=== PATIENT | male | born 1955 | race Caucasian/White ===

== ENCOUNTER 2016-09-05 15:58 | Emergency (ER) | payer BC, OTHER ==
[2016-09-05 16:22] VITALS: BP 147/82
--- NOTE | 2016-09-05 17:35 | RAD ---
HISTORY: Fall, back pain COMPARISONS: July 31, 2011 VIEWS: 5 , Frontal, lateral, coned-down lateral sacral, and bilateral oblique views of the lumbar spine. FINDINGS: ALIGNMENT: The alignment is normal. VERTEBRAL BODIES: There is osteopenia. There is mild loss of vertebral body height at T12. There is no appreciable osseous retropulsion. There is a step-off of the sacral-coccygeal junction JOINTS: There is diffuse facet hypertrophy change, most pronounced at L4-L5 and L5-S1 INTERVERTEBRAL DISCS: There is diffuse loss of intervertebral disc height. SOFT TISSUE: Unremarkable. OTHER: The pelvis is unremarkable. The lung bases are clear. IMPRESSION: 1. OSTEOPENIA. 2. MILD LOSS OF VERTEBRAL BODY HEIGHT AT T12 WHICH MAY REPRESENT AN AGE-INDETERMINATE COMPRESSION FRACTURE. THERE IS NO OSSEOUS RETROPULSION. 3. STEP-OFF AT THE SACROCOCCYGEAL JUNCTION SUGGESTIVE OF A MINIMALLY DISPLACED FRACTURE GIVEN HISTORY OF TRAUMA. 4. DEGENERATIVE DISC DISEASE AND OSTEOARTHRITIS
--- NOTE | 2016-09-05 17:37 | UC ---
Back Pain HPI - HPI Summary HPI Summary: patient slipped going down the stairs, landed on his tailbone and felt a pull in the lower left back and upper right back. happened about 3 hours ago - History of Current Complaint Chief Complaint: UCBackPain Stated Complaint: BACK,TAILBONE FROM FALL W/C Time Seen by Provider: 09/05/16 16:17 Hx Obtained From: Patient Onset/Duration: Sudden Onset, Lasting Hours Timing: Constant Severity Initially: Moderate Severity Currently: Moderate Back Pain: Is Discrete @ Character: Throbbing, Spasmodic Aggravating: Movement Alleviating: Rest Associated Signs And Symptoms: Positive: Negative - Allergies/Home Medications Allergies/Adverse Reactions: Allergies Allergy/AdvReac Type Severity Reaction Status Date / Time environmental Allergy Congestion Uncoded 09/05/16 16:21 Home Medications: Home Medications Tumeric DAILY 09/05/16 [History] PMH/Surg Hx/FS Hx/Imm Hx Previously Healthy: Yes Endocrine History Of: Denies: Diabetes Cardiovascular History Of: Reports: Hypertension Respiratory History Of: Denies: Asthma - Surgical History Surgical History: Yes Surgery Procedure, Year, and Place: abd. hernia - Family History Known Family History: Positive: Hypertension - father, Diabetes - mother and father - Social History Alcohol Use: Occasionally Substance Use Type: None Smoking Status (MU): Never Smoked Tobacco Review of Systems Constitutional: Negative Skin: Negative Eyes: Negative ENT: Negative Respiratory: Negative Cardiovascular: Negative Gastrointestinal: Negative Genitourinary: Negative Motor: Negative Neurovascular: Negative Musculoskeletal: Arthralgia, Decreased ROM, Myalgia Neurological: Negative Psychological: Negative All Other Systems Reviewed And Are Negative: Yes Physical Exam Triage Information Reviewed: Yes Appearance: Well-Appearing, Well-Nourished, Pain Distress Vital Signs: Initial Vital Signs Temp 99.5 F 09/05/16 16:17 Pulse 72 09/05/16 16:17 Resp 18 09/05/16 16:17 BP 147/82 09/05/16 16:17 Pulse Ox 96 09/05/16 16:17 Vital Signs Reviewed: Yes Eye Exam: Normal Eyes: Positive: Conjunctiva Clear ENT Exam: Normal Dental Exam: Normal Neck exam: Normal Neck: Positive: Supple, Nontender, No Lymphadenopathy Respiratory Exam: Normal Respiratory: Positive: Chest non-tender, Lungs clear, Normal breath sounds Cardiovascular Exam: Normal Cardiovascular: Positive: RRR, No Murmur, Pulses Normal Abdominal Exam: Normal Abdomen Description: Positive: Nontender, No Organomegaly, Soft Bowel Sounds: Positive: Present Musculoskeletal Exam: Normal Musculoskeletal: Positive: Strength Intact, ROM Intact - painful with twisting, No Edema Neurological Exam: Normal Neurological: Positive: Alert, Muscle Tone Normal Psychological Exam: Normal Skin Exam: Normal Back Pain Course/Dx - Course Course Of Treatment: hx obtained, exam performed, meds reviewed, xray obtained to R/O bony injury. denied need for pain meds or muscle relaxors. no treatment given. recommendations for stretching and treatment given. compression fracture , old, and possible coccyx fracture noted. - Differential Dx/Diagnosis Differential Diagnosis/HQI/PQRI: Arthritis, Herniated Disc, Strain, Sprain Provider Diagnoses: low back strain. coccyx fracture. compression fracture of t12 Discharge - Discharge Plan Condition: Stable Disposition: HOME Patient Education Materials: Low Back Strain (ED), Core Strengthening Exercises (ED), Sacral Fracture (ED), Vertebral Compression Fracture (ED) Referrals: Shade Leach DO [Primary Care Provider] - Additional Instructions: 1. mild stretching and keep moving in pain free reange 2. warm compresses and soaks to relieve tightness 3. follow up with any worsening symptoms
== END 2016-09-05 18:04 | disposition home or self-care (01) ==
LOC: UCCORT 15:58
DX: S39.012A Strain of muscle, fascia and tendon of lower back, initial encounter (principal); S22.080A Wedge compression fracture of T11-T12 vertebra, initial encounter for closed fracture; S32.2XXA Fracture of coccyx, initial encounter for closed fracture; W10.9XXA Fall (on) (from) unspecified stairs and steps, initial encounter; Y93.9 Activity, unspecified; Y92.89 Other specified places as the place of occurrence of the external cause; Y99.0 Civilian activity done for income or pay; M85.88 Other specified disorders of bone density and structure, other site; M51.37 Other intervertebral disc degeneration, lumbosacral region; M47.817 Spondylosis without myelopathy or radiculopathy, lumbosacral region; I10 Essential (primary) hypertension
CPT/HCPCS: 72110; 99211; G0463

== ENCOUNTER 2017-04-28 17:22 | Emergency (ER) | payer BC, OTHER ==
[2017-04-28 18:39] VITALS: BP 156/91
--- NOTE | 2017-04-28 18:41 | UC ---
Respiratory Complaint HPI - HPI Summary HPI Summary: nasal and head congestion worsening the past 2 days, has been using Afrin Daily for 2-3 months. - History of Current Complaint Chief Complaint: UCGeneralIllness Stated Complaint: COUGH Time Seen by Provider: 04/28/17 18:38 Hx Obtained From: Patient Onset/Duration: Gradual Onset, Lasting Weeks, Worse Since - past 2 days Timing: Constant Severity Initially: Mild Severity Currently: Moderate Character: Cough: Nonproductive Aggravating Factors: Nothing Alleviating Factors: Other - afrin nasal spray Associated Signs And Symptoms: Positive: URI, Nasal Congestion - Allergies/Home Medications Allergies/Adverse Reactions: Allergies Allergy/AdvReac Type Severity Reaction Status Date / Time environmental Allergy Congestion Uncoded 04/28/17 18:39 Home Medications: Home Medications Dextromethorphan-Phenylephrine [Daytime Multi Symptom Col] 2 cap PO DAILY PRN [History Confirmed 04/28/17] Ibuprofen [Ibuprofen 200] 400 mg PO Q6H PRN 04/28/17 [History Confirmed 04/28/17 ] [id number] W/ APAP [Delsym Cough + Cold D... 9-02-088-325 mg/10Ml] 1 liq PO DAILY PRN 04/28/17 [History Confirmed 04/28/17] PMH/Surg Hx/FS Hx/Imm Hx Previously Healthy: No Endocrine History: Dyslipidemia - Surgical History Surgical History: Yes Surgery Procedure, Year, and Place: abd. hernia - Family History Known Family History: Positive: Hypertension - father, Diabetes - mother and father - Social History Occupation: Employed Part-time Lives: With Family Alcohol Use: Occasionally Substance Use Type: None Smoking Status (MU): Never Smoked Tobacco Review of Systems Constitutional: Negative Skin: Negative Eyes: Negative ENT: Ear Ache, Sinus Congestion Respiratory: Negative Cardiovascular: Negative Gastrointestinal: Negative Genitourinary: Negative Motor: Negative Neurovascular: Negative Musculoskeletal: Negative Neurological: Negative Psychological: Negative Is Patient Immunocompromised?: No All Other Systems Reviewed And Are Negative: Yes Physical Exam Triage Information Reviewed: Yes Appearance: Well-Appearing, No Pain Distress, Well-Nourished Vital Signs: Initial Vital Signs Temp 98.9 F 04/28/17 18:34 Pulse 75 04/28/17 18:34 Resp 20 04/28/17 18:34 BP 156/91 04/28/17 18:34 Pulse Ox 99 12/23/17 18:34 Vital Signs Reviewed: Yes Eye Exam: Normal Eyes: Positive: Conjunctiva Clear ENT Exam: Normal ENT: Positive: Normal ENT inspection, Hearing grossly normal, Pharynx normal, Nasal congestion, TMs normal, Uvula midline. Negative: Tonsillar swelling, Tonsillar exudate, Trismus, Muffled voice, Hoarse voice, Dental tenderness, Sinus tenderness Dental Exam: Normal Neck exam: Normal Neck: Positive: Supple, Nontender, No Lymphadenopathy Respiratory Exam: Normal Respiratory: Positive: Chest non-tender, Lungs clear, Normal breath sounds, No respiratory distress, No accessory muscle use Cardiovascular Exam: Normal Cardiovascular: Positive: RRR, No Murmur, Pulses Normal, Brisk Capillary Refill Musculoskeletal Exam: Normal Musculoskeletal: Positive: Strength Intact, ROM Intact, No Edema Neurological Exam: Normal Neurological: Positive: Alert, Muscle Tone Normal Psychological Exam: Normal Skin Exam: Normal UC Diagnostic Evaluation - Laboratory O2 Sat by Pulse Oximetry: 99 Respiratory Course/Dx - Course Course Of Treatment: Stop Afrin, Use nasal spaline every 1-2 hours try mucinex d , follow with pcp - Differential Dx/Diagnosis Provider Diagnoses: nasal congestion, Afrin Misuse, Elevated Blood Pressure With Diagnosis of hypertension Discharge - Discharge Plan Condition: Stable Disposition: HOME Patient Education Materials: Decongestant/Expectorant (By mouth), Sodium Chloride (Into the nose), How to Use Nasal [place] (ED) Referrals: Huma Nguyen PA [Primary Care Provider] - 1 Week
== END 2017-04-28 19:12 | disposition home or self-care (01) ==
LOC: UCCORT 17:22
DX: R09.81 Nasal congestion (principal); T48.5X1A Poisoning by other anti-common-cold drugs, accidental (unintentional), initial encounter; Y92.9 Unspecified place or not applicable; R03.0 Elevated blood-pressure reading, without diagnosis of hypertension; Z72.89 Other problems related to lifestyle
CPT/HCPCS: 99211; G0463

== ENCOUNTER 2018-05-12 08:44 | Emergency (ER) | payer BC, OTHER ==
[2018-05-12 08:57] VITALS: BP 147/86
--- NOTE | 2018-05-12 09:06 | UC ---
UC General HPI - HPI Summary HPI Summary: 5 DAY HX SINUS DISCOMFORT, CONGESTION AND A SINUS HEADACHE. NEW COUGH AND GREEN MUCOUS. NO FEVER OR BLOODY DRAINAGE. SELF TX WITH NASAL SALINE FLUSHES AND DECONGESTANT. HX SINUS INFECTIONS. - History of Current Complaint Chief Complaint: UCGeneralIllness Stated Complaint: SINUS CONCERN Time Seen by Provider: 05/12/18 08:57 Hx Obtained From: Patient Onset/Duration: Gradual Onset Timing: Constant Pain Intensity: 0 Associated Signs & Symptoms: Negative: Fever - Allergy/Home Medications Allergies/Adverse Reactions: Allergies Allergy/AdvReac Type Severity Reaction Status Date / Time environmental Allergy Congestion Uncoded 05/12/18 08:54 Home Medications: Home Medications Magnesium [Magnesium Elemental] 30 mg PO DAILY 05/12/18 [History Confirmed 05/12] Pseudoephedrine HCL ER TAB* [Sudafed 12 Hour*] 120 mg PO BID 05/12/18 [History Confirmed 05/12/18] PMH/Surg Hx/FS Hx/Imm Hx - Additional Past Medical History Additional PMH: SINUSITIS, REZA Cardiovascular History: Hypertension - Surgical History Surgical History: Yes Surgery Procedure, Year, and Place: abd. hernia - Family History Known Family History: Positive: Hypertension - father, Diabetes - mother and father - Social History Alcohol Use: Occasionally Substance Use Type: None Smoking Status (MU): Never Smoked Tobacco - Immunization History Vaccination Up to Date: Yes Review of Systems All Other Systems Reviewed And Are Negative: Yes Constitutional: Positive: Chills. Negative: Fever Skin: Positive: Negative Eyes: Positive: Negative ENT: Positive: Nasal Discharge, Sinus Congestion, Sinus Pain/Tenderness Respiratory: Positive: Cough Cardiovascular: Positive: Negative Gastrointestinal: Positive: Negative Genitourinary: Positive: Negative Motor: Positive: Negative Neurovascular: Positive: Negative Musculoskeletal: Positive: Negative Neurological: Positive: Headache Psychological: Positive: Negative Is Patient Immunocompromised?: No Physical Exam Triage Information Reviewed: Yes Appearance: Well-Appearing Vital Signs: Initial Vital Signs Temp 98.1 F 05/12/18 08:54 Pulse 79 05/12/18 08:54 Resp 18 05/12/18 08:54 BP 147/86 05/12/18 08:54 Pulse Ox 96 05/12/18 08:54 Vital Signs Reviewed: Yes Eyes: Positive: Conjunctiva Clear ENT: Positive: Pharynx normal, Nasal congestion, TMs normal, Sinus tenderness. Negative: Nasal drainage Neck: Positive: Supple, Nontender, No Lymphadenopathy Respiratory: Positive: Lungs clear, Normal breath sounds Cardiovascular: Positive: RRR, No Murmur Abdomen Description: Positive: Nontender, No Organomegaly, Soft Musculoskeletal: Positive: ROM Intact Neurological: Positive: Alert Psychological: Positive: Age Appropriate Behavior Skin Exam: Normal Course/Dx - Course Course Of Treatment: NO FEVER, NON TOXIC AND DRAINAGE IS NOT BLOODY THUS WILL CONTINUE OTC TX. IF NOT BETTER IN 48 HOURS OR IF WORSE, PT TO ADD ANTIBIOTIC. - Differential Dx - Multi-Symptom Differential Diagnoses: Other - VIRAL URI, BACTERIAL SINUSITIS - Diagnoses Provider Diagnosis: Sinusitis Discharge - Sign-Out/Discharge Documenting (check all that apply): Patient Departure All imaging exams completed and their final reports reviewed: No Studies - Discharge Plan Condition: Stable Disposition: HOME Prescriptions: Amoxicillin/Clavulanate TAB* [Augmentin TAB 875*] 875 mg PO BID 10 Days #20 tab Patient Education Materials: Sinusitis (ED) Referrals: Huma Nguyen PA [Primary Care Provider] - Additional Instructions: CONTINUE THE NASAL FLUSHING. IF NOT IMPROVING IN 48 HOURS START THE ANTIBIOTIC. START THE ANTIBIOTIC SOONER FOR WORSENING SINUS COMPLAINT. - Billing Disposition and Condition Condition: STABLE Disposition: Home - Attestation Statements Provider Attestation: I was available for consult. This patient was seen by the PORFIRIO. The patient was not presented to , seen by or examined by ak -Howard Golden MD
== END 2018-05-12 09:13 | disposition home or self-care (01) ==
LOC: UCCORT 08:44
DX: J32.9 Chronic sinusitis, unspecified (principal)
CPT/HCPCS: 99212; G0463

== ENCOUNTER 2019-03-06 17:20 | Emergency (ER) | payer BC ==
--- OUTSIDE RECORDS SUMMARY | 2019-03-06 17:28 | XMS REPORT | Continuity of Care Document ---
:1955 External Reference #:[id number] Author Name Huma Nguyen PA Address [address] [place] [id number] Problems Active Problems Provider Date Pure hyperglyceridemia Shade Leach DO Onset: 10/12/2005 Sleep apnea Shade Leach DO Onset: 10/12/2005 Benign essential hypertension Racheal Lopez PA Onset: 08/15/2004 Social History Type Date Description Comments Sex Unknown ETOH Use Occasionally consumes alcohol Tobacco Use Start: Unknown Patient has never smoked Allergies, Adverse Reactions, Alerts Description No Known Drug Allergies Medications Active Medications SIG Qnty Indications Ordering Provider Date Doxycycline Hyclate 1 tablet by 20caps J01.90 Dioni Tristan DO 2018 mouth twice a 100mg Capsules day x 10 days Montelukast Sodium 1 by mouth every 90tabs Dioni Tristan DO 01/23/2019 10mg day Tablets Nifedipine ER 1 by mouth every 90tabs I10 Dioni Tristan DO 06/03/2018 60mg day Tablets ER 24HR Glucosamine every day Dioni Tristan DO 02/08/2018 Chondroitin 1500 Complex 1500Com Capsules Calcium Carbonate 1 PO qd Unknown 1500mg Tablets Multi-Vitamin Daily 1 by mouth every Unknown day Tablets Magnesium Oxide -MG 1 by mouth every Unknown Supplement day 250mg Tablets Immunizations CPT Code Status Date Vaccine Lot # [id number] Given 08/21/2013 Hepatitis B Vac Adolescent 2 Dose Schedule 19866 Given 05/22/2013 Hepatitis B Vac Adolescent 2 Dose Schedule 08372 Given 03/20/2013 Hepatitis B Vac Adolescent 2 Dose Schedule 58314 Given 10/24/2010 Tdap (Adacel) Ages 7 And Above Only [id number] Refused 02/08/2018 Flu Vaccine NOS Vital Signs Date Vital Result Comment 01/23/2019 3:28pm Body Temperature 98.3 F Weight 248.00 lb Heart Rate 68 /min BP Systolic 140 mmHg BP Diastolic 72 mmHg Respiratory Rate 18 /min Height 71 inches 5'11" O2 % BldC Oximetry 95 % BMI (Body Mass Index) 34.6 kg/m2 08/15/2018 3:21pm Body Temperature 98.8 F Weight 252.00 lb Heart Rate 80 /min BP Systolic 138 mmHg BP Diastolic 82 mmHg Respiratory Rate 18 /min Height 71 inches 5'11" BMI (Body Mass Index) 35.1 kg/m2 Results Test Date Facility Test Result H/L Range Note Lipid 08/08/2018 [facility] Cholesterol 223 mg/dL High 50-199 Triglycerides 150 mg/dL 30-200 HDL 35 mg/dL 29-71 1 Chol/ HDL Ratio 6.3 ratio 4.0-6.7 VLDL 30 mg/dL High 2-29 LDL (Calc) 158 mg/dL High 20-99 2 Comprehensive Met Panel-[facility] 08/08/2018 [facility] Sodium 138 mmol/L 135- 146 3 Potassium 4.3 mmol/L 3.5-5.2 Chloride# 105 mmol/L 97-110 4 Carbon Dioxide 25 mmol/L 24-34 Glucose 102 mg/dL 70-105 BUN 14 mg/dL 6-26 Creatinine 1.0 mg/dL 0.5-1.4 Calcium 9.3 mg/dL 8.5-10.2 Total Protein 7.2 g/dL 6.0-8.0 Albumin 4.3 g/dL 3.6-4.9 Globulin 2.9 g/dL 2.0-3.5 A/G Ratio 1.5 Ratio 1.0-2.2 Total Bilirubin 0.4 mg/dL 0.1-1.3 Alkaline Phosphatase 83 U/L 24-140 Alt 18 U/L 3-42 Ast 19 U/L 8-42 Anion Gap 8 mmol/L 5-15 5 Gina Egfr >60 >60 6 Non Gina Egfr >60 >60 7 CBC with Auto Diff-fcmg 08/08/2018 [facility] WBC 6.0 K/uL 4.1-11.0 RBC 5.26 M/uL 4.60-6.10 Hemoglobin 15.8 gm/dL 13.5-18.0 Hematocrit 47.4 % 41.0-53.0 MCV 90.1 fL 80.0-97.0 MCH 30.1 pg 27.0-32.0 MCHC 33.4 g/dL 32.0-36.0 RDW 13.7 % 11.5-14.5 PLT Count 264 K/ul 140-400 MPV 9.0 FL 7.1-10.7 Neutrophil 57.9 % 35.0-75.0 Lymphocyte 28.7 % 16.0-52.0 Monocyte 10.0 % 2.0-10.0 Eosinophil 2.9 % 0.0-5.0 Basophil 0.5 % 0.0-4.0 Abs Neutrophils 3.5 K/uL 2.1-8.0 Abs Lymphocytes 1.7 K/uL 0.8-5.5 Abs Monocytes 0.6 K/uL 0.1-1.0 Abs Eosinophils 0.2 K/uL 0.0-0.5 Abs Basophils 0.0 K/uL 0.0-0.3 Laboratory test 08/08/2018 [facility] PSA 0.760 ng/mL 0.000-4.000 8 finding Celiac Disease Panel 08/08/2018 [facility] Celikey (tTG) IgA Negative Negative Celikey (tTG) IgG Negative Negative deamidated Gliadin IgA Negative Negative deamidated Gliadin IgG Negative Negative 1 Per NCEP ATP III Guidelines: Results lower than 40 mg/dL are suggestive of increased risk for coronary artery disease. Results > or = to 60 mg/dL are considered a negative risk factor. 2 Per NCEP ATP III Guidelines: Normal Population <130 Patients with medical conditions: CHD/DM Optimal: <100 Borderline high: 130-159 High: 160-189 Very high: >189 3 Updated reference range on new analyzer 4 Updated reference range on new analyzer 5 Updated Reference Range 6 Concerning GFR Guidelines for Americans: Normal function or mild renal disease, if clinically at risk: >/= 60 mL/min Moderately decreased: 30-59 Severely decreased: 15-29 Renal failure: <15 7 Concerning GFR Guidelines: Normal function or mild renal disease, if clinically at risk: >/= 60 mL/min Moderately decreased: 30-59 Severely decreased: 15-29 Renal failure: <15 Glomerular Filtration Rate (GFR) is estimated based on the MDRD equation, which assumes a steady state for creatinine as recommended by the National Kidney Disease Education Program in conjunction with the National Institutes of Health and the National Kidney Foundation. Clinical conditions in which it may be necessary to measure GFR by using clearance methods include extremes of age and body size, severe malnutrition or obesity, diseases of skeletal muscle, paraplegia or quadriplegia, vegetarian diet, rapidly changing kidney function, and calculation of the dose of potentially toxic drugs that are excreted by the kidneys. 8 Beginning 07/02/06 PSA values assayed at [facility] uses chemiluminescence methodology manufactured by [employer] for use on the DXI analyzer. Values obtained with different assay methods or kits can not be used interchangeably. Serum PSA measurement is not an absolute test for malignancy. The PSA value should be used in conjunction with information available from clinical evaluation and other diagnostic procedures. Procedures Date Code Description Status 12/28/2016 [id number] Colonoscopy Completed Medical Devices Description No Information Available Encounters Type Date Location Provider Dx Diagnosis Office Visit 08/15/2018 [facility] Huma Nguyen PA Z00.00 Encntr for general 3:30p adult medical exam w/o abnormal findings I10 Essential (primary) hypertension E78.2 Mixed hyperlipidemia Z68.35 Body mass index (BMI) 35.0-35.9, adult Assessments Date Code Description Provider 01/23/2019 J01.90 Acute sinusitis, unspecified Huma Nguyen PA 01/23/2019 Z68.34 Body mass index (BMI) 34.0-34.9, adult Huma Nguyen PA 08/15/2018 Z00.00 Encounter for general adult medical Huma Nguyen PA examination without abno 08/15/2018 I10 Essential (primary) hypertension Huma Nguyen PA 08/15/2018 E78.2 Mixed hyperlipidemia Huma Nguyen PA 08/15/2018 Z68.35 Body mass index (BMI) 35.0-35.9, adult Huma Nguyen PA 08/08/2018 E78.2 Mixed hyperlipidemia Dioni Tristan DO 08/08/2018 E78.2 Mixed hyperlipidemia Schedule, Laboratory 08/08/2018 Z12.5 Encounter for screening for malignant neoplasm Dioni Tristan DO of prostate 08/08/2018 Z12.5 Encounter for screening for malignant neoplasm Schedule, Laboratory of prostate 08/08/2018 R14.0 Abdominal distension (gaseous) Dioni Tristan DO 08/08/2018 R14.0 Abdominal distension (gaseous) Schedule, Laboratory 08/08/2018 E78.2 Mixed hyperlipidemia [facility] 08/08/2018 Z12.5 Encounter for screening for malignant neoplasm [facility] of prostate 08/08/2018 R14.0 [facility]dominal [facility] Plan of Treatment Future Appointment(s):02/24/2019 9:40 am - Schedule, Laboratory at [facility]2018 3:30 pm - Huma Nguyen PA at [facility]01/23/2019 - Huma Nguyen PAJ01.90 Acute sinusitis, unspecifiedNew Medication:Doxycycline Hyclate 100 mg - 1 tablet by mouth twice a day x 10 daysComments:Will treat with doxyContinue flonase, coricidinCall with worsening/persisting symptomsFollow up:PrnZ68.34 Body mass index (BMI) 34.0-34.9, adult Functional Status Description No Information Available Mental Status Description No Information Available Referrals Description No Information Available
--- OUTSIDE RECORDS SUMMARY | 2019-03-06 17:28 | XMS REPORT | Continuity of Care Document ---
:1955 External Reference #:[id number] Author Name Huma Nguyen PA Address [address] [place] [address] Problems Active Problems Provider Date Pure hyperglyceridemia [...] Medications SIG Qnty Indications Ordering Provider Date Albuterol Sulfate 2 puffs every 4-6 17gm R05 Dioni Tristan, 02/27/2019 HFA hours as needed DO 108(90Base) for cough, mcg/Act Aerosol wheezing, shortness of breath Montelukast Sodium 1 by mouth every 90tabs Dioni Tristan, 01/23/2019 day DO 10mg Tablets Nifedipine ER 1 by mouth every 90tabs I10 Dioni Tristan, 06/03/2018 60mg day DO Tablets ER 24HR Glucosamine every day Dioni Tristan, 02/08/2018 Chondroitin 1500 DO Complex 1500Com Capsules Calcium Carbonate 1 PO qd Unknown 1500mg Tablets Multi-Vitamin Daily 1 by mouth every Unknown day Tablets Magnesium Oxide -MG 1 by mouth every Unknown Supplement day 250mg Tablets History Medications Doxycycline Hyclate 1 tablet by 20caps J01.90 Dioni Tristan, 01/23/2019 - mouth twice a DO 02/02/2019 100mg Capsules day x 10 days Immunizations CPT Code Status Date Vaccine Lot # [id number] Given 08/21/2013 Hepatitis B Vac Adolescent 2 Dose Schedule 99016 Given 05/22/2013 Hepatitis B Vac Adolescent 2 Dose Schedule 04124 Given 03/20/2013 Hepatitis B Vac Adolescent 2 Dose Schedule 03842 Given 10/24/2010 Tdap (Adacel) Ages 7 And Above Only Q2039 Refused 02/08/2018 Flu Vaccine NOS Vital Signs Date Vital Result Comment 02/27/2019 3:31pm Weight 252.00 lb Heart Rate 70 /min BP Systolic 140 mmHg BP Diastolic 80 mmHg Respiratory Rate 18 /min Height 71 inches 5'11" BMI (Body Mass Index) 35.1 kg/m2 01/23/2019 3:28pm Body Temperature 98.3 F Weight 248.00 lb Heart Rate 68 /min BP Systolic 140 mmHg BP Diastolic 72 mmHg Respiratory Rate 18 /min Height 71 inches 5'11" O2 % BldC Oximetry 95 % BMI (Body Mass Index) 34.6 kg/m2 Results Test Date Facility Test Result H/L Range Note Lipid 02/24/2019 [facility] Cholesterol 192 mg/dL 50-199 Triglycerides 148 mg/dL 30-200 HDL 33 mg/dL 29-71 1 Chol/ HDL Ratio 5.8 ratio 4.0-6.7 VLDL 30 mg/dL High 2-29 LDL (Calc) 129 mg/dL High 20-99 2 Comprehensive Met Panel[facility] 02/24/2019 [facility] Sodium 137 mmol/L 135- 146 3 Potassium 4.5 mmol/L 3.5-5.2 Chloride# 104 mmol/L 97-110 4 Carbon Dioxide 25 mmol/L 24-34 Calcium 9.3 mg/dL 8.5-10.5 5 Glucose 93 mg/dL 70-105 BUN 13 mg/dL 6-26 Creatinine 1.0 mg/dL 0.5-1.4 Total Protein 6.9 g/dL 6.0-8.0 Albumin 4.3 g/dL 3.6-4.9 Globulin 2.6 g/dL 2.0-3.5 A/G Ratio 1.7 Ratio 1.0-2.2 Total Bilirubin 0.5 mg/dL 0.1-1.3 Alkaline Phosphatase 85 U/L 24-140 Alt 21 U/L 3-42 Ast 20 U/L 8-42 Anion Gap 8 mmol/L 5-15 6 Female Egfr 63 >60 7 Male Egfr 84 >60 8 1 Per NCEP ATP III Guidelines: Results [...] reference range on new analyzer 5 Updated reference range 09-04-2018 6 Updated Reference Range 7 Concerning GFR Guidelines for Americans: Normal function or mild renal disease, if clinically at risk: >/= 60 mL/min Moderately decreased: 30-59 Severely decreased: 15-29 Renal failure: <15 There is reduced accuracy above 60ml/min/1.73 m squared, but the numeric value may be clinically useful in the near 60 range 8 Concerning GFR Guidelines: Normal function or mild renal disease, if clinically at risk: >/= 60 mL/min Moderately decreased: 30-59 Severely decreased: 15-29 Renal failure: <15 There is reduced accuracy above 60ml/min/1.73 m squared, but the numeric value may be clinically useful in the near 60 range Glomerular Filtration Rate (GFR) is estimated based on the CKD-EPI equation, which assumes a steady state for [...] drugs that are excreted by the kidneys. Procedures Date Code Description Status 12/28/2016 [id number] Colonoscopy Completed Medical Devices Description No Information Available Encounters Type Date Location Provider Dx Diagnosis Office Visit 01/23/2019 [facility] Huma Nguyen PA J01.90 Acute sinusitis, 3:30p unspecified Z68.34 Body mass index (BMI) 34.0-34.9, adult Assessments Date Code Description Provider 02/27/2019 I10 Essential (primary) hypertension Huma Nguyen PA 02/27/2019 E78.2 Mixed hyperlipidemia Huma Nguyen PA 02/27/2019 R05 Cough Huma Nguyen PA 02/27/2019 Z12.5 Encounter for screening for malignant neoplasm Huma Nguyen PA of prostate 02/27/2019 Z68.35 Body mass index (BMI) 35.0-35.9, adult Huma Nguyen PA 02/24/2019 E78.2 Mixed hyperlipidemia Huma Nguyen PA 02/24/2019 E78.2 Mixed hyperlipidemia Schedule, Laboratory 02/24/2019 E78.2 Mixed hyperlipidemia [facility] 01/23/2019 J01.90 Acute sinusitis, unspecified Huma Nguyen PA 01/23/2019 Z68.34 Body mass index (BMI) 34.0-34.9, adult Huma Nguyen PA Plan of Treatment Future Appointment(s):09/01/2019 7:50 am - Schedule, Laboratory at [facility]2019 3:15 pm - Huma Nguyen PA at [facility]02/27/2019 - Huma Nguyen PAI10 Essential (primary) hypertensionComments:Continue current medicationAdvised to resume medication and call with readings back on medicationFollow up:6 months labs 1 week [id number] Mixed hyperlipidemiaNew Labs:Lipid, Scheduled: Comprehensive Met Panel-[facility], Scheduled: 08/25/19Comments:Lipids improvingWill continue diet changes and [id number] CoughNew Medication: Albuterol Sulfate HFA 108(90 Base) mcg/Act - 2 puffs every 4-6 hours as needed for cough, wheezing, shortness of breathComments:Will try [id number] Encounter for screening for malignant neoplasm of prostateNew Labs:PSA, Scheduled: 08/25/19CBC with Auto Diff-[facility], Scheduled: 08/25/19Comments:Will check PSA with next set of labsZ68.35 Body mass index (BMI) 35.0-35.9, adult Functional Status Description No Information Available Mental Status Description No Information Available Referrals Description No Information Available
[2019-03-06 17:36] VITALS: BP 147/94
--- NOTE | 2019-03-06 17:56 | UC ---
Throat Pain/Nasal Alfred HPI - HPI Summary HPI Summary: 63-year-old male comes in with a chief complaint of upper respiratory tract infection symptoms. In January he was diagnosed with sinusitis and treated with doxycycline at that time. Overall he improved however he's continued to have some chronic rhinorrhea. He has been using saline nasal spray. Is also been using Sudafed recently. The last 5 days the rhinorrhea has increased and gotten a sore throats and now his sinuses are clogged and he has sinus pressure. No complaint of any shortness of breath. - History of Current Complaint Chief Complaint: UCGeneralIllness Stated Complaint: CARREON,BILATERAL EAR COMPLAINT,COUGH,NASAL CONGESTION Time Seen by Provider: 03/06/19 17:45 Pain Intensity: 6 - Allergies/Home Medications Allergies/Adverse Reactions: Allergies Allergy/AdvReac Type Severity Reaction Status Date / Time environmental Allergy Congestion Uncoded 03/06/19 17:36 Home Medications: Home Medications Montelukast Sodium TAB* [Singulair 10 MG TAB*] 1 tab PO BEDTIME 03/06/19 [ History Confirmed 03/06/19] NIFEdipine ER TAB* [Procardia Xl TAB*] 1 tab PO BEDTIME 03/06/19 [History Confirmed 03/06/19] PMH/Surg Hx/FS Hx/Imm Hx Previously Healthy: Yes Cardiovascular History: Hypertension - Surgical History Surgical History: Yes Surgery Procedure, Year, and Place: abd. hernia - Family History Known Family History: Positive: Hypertension - father, Diabetes - mother and father - Social History Alcohol Use: Occasionally Substance Use Type: None Smoking Status (MU): Never Smoked Tobacco - Immunization History Vaccination Up to Date: Yes Review of Systems All Other Systems Reviewed And Are Negative: Yes Constitutional: Positive: Other - see hpi Skin: Positive: Negative Eyes: Positive: Negative ENT: Positive: Sore Throat, Nasal Discharge, Sinus Congestion, Sinus Pain/ Tenderness Respiratory: Positive: Negative Cardiovascular: Positive: Negative Gastrointestinal: Positive: Negative Motor: Positive: Negative Neurovascular: Positive: Negative Musculoskeletal: Positive: Negative Neurological: Positive: Negative Psychological: Positive: Negative Is Patient Immunocompromised?: No Physical Exam Triage Information Reviewed: Yes Appearance: No Pain Distress, Well-Nourished, Ill-Appearing - mild Vital Signs: Initial Vital Signs Temp 97.8 F 03/06/19 17:31 Pulse 68 10/31/19 17:31 Resp 16 03/06/19 17:31 BP 147/94 03/06/19 17:31 Pulse Ox 97 03/06/19 17:31 Vital Signs Reviewed: Yes Eye Exam: Normal Eyes: Positive: Conjunctiva Clear ENT: Positive: Pharyngeal erythema, Nasal congestion, Nasal drainage, TMs normal Neck: Positive: Supple Respiratory: Positive: Lungs clear, Normal breath sounds, No respiratory distress Cardiovascular: Positive: RRR Musculoskeletal: Positive: Strength Intact, ROM Intact Neurological: Positive: Alert, Muscle Tone Normal Psychological: Positive: Age Appropriate Behavior Throat Pain/Nasal Course/Dx - Course Course Of Treatment: DISCUSSED VIRAL VERSES BACTERIAL INFECTIONS AND THE ROLE OF ANTIBIOTICS. THE PATIENT PREFERS TO BE ON ANTIBIOTICS AT THIS TIME. - Differential Dx/Diagnosis Provider Diagnosis: Sinusitis Discharge ED - Sign-Out/Discharge Documenting (check all that apply): Patient Departure All imaging exams completed and their final reports reviewed: No Studies - Discharge Plan Condition: Stable Disposition: HOME Prescriptions: Amoxicillin/Clavulanate TAB* [Augmentin TAB 875*] 875 mg PO BID #20 tab Patient Education Materials: Sinusitis (ED) Referrals: Huma Nguyen PA [Primary Care Provider] - Additional Instructions: FOLLOW UP WITH YOUR DOCTOR IF NOT COMPLETELY IMPROVED. GET REEVALUATED SOONER IF NOT IMPROVING OR YOUR CONDITION WORSENS OR ANY QUESTIONS OR CONCERNS. - Billing Disposition and Condition Condition: STABLE Disposition: Home
== END 2019-03-06 18:03 | disposition home or self-care (01) ==
LOC: UCCORT 17:20
DX: J32.9 Chronic sinusitis, unspecified (principal); J02.9 Acute pharyngitis, unspecified; I10 Essential (primary) hypertension; Z91.09 Other allergy status, other than to drugs and biological substances
CPT/HCPCS: 99212; G0463